=== PATIENT | female | born 1990 | race Caucasian/White ===

== ENCOUNTER 2017-10-08 04:46 | Emergency (ER) | payer OTHER ==
[2017-10-08 05:04] LABS: URINE PH (Dip) POC 7.5 (5.0-8.5)
[2017-10-08 05:04] LABS: URINE BLOOD (Dip) POC 2+ (NEGATIVE); URINE GLUCOSE (Dip) POC Negative (NEGATIVE); URINE KETONES (Dip) POC Negative (NEGATIVE); URINE LEUKOCYTE EST (Dip) POC Negative (NEGATIVE); URINE NITRITE (Dip) POC Negative (NEGATIVE); URINE TOTAL PROTEIN POC Negative (NEGATIVE)
[2017-10-08] MEDS: SOD CHLORIDE 0.9% 500 ML IV (05:12)
[2017-10-08] MEDS: HYDROmorphONE 2 MG/ML SYG IV (05:13)
[2017-10-08] MEDS: ONDANSETRON 4 MG INJ IV ×2 (05:13→05:54)
[2017-10-08 05:43] LABS: ADD MAN DIFF? NO
[2017-10-08 05:52] LABS: BASOPHILS % 0.5 % (0.0-2.0); EOSINOPHILS # 0.4 10^3/ul (0.0-0.5); EOSINOPHILS % 4.3 % (0.0-7.0); HEMATOCRIT 36.5 % (37.0-47.0); HEMOGLOBIN 12.1 g/dl (12.0-16.0); LYMPHOCYTES # 2.9 10^3/ul (0.8-2.9); LYMPHOCYTES % 33.7 % (15.0-51.0); MEAN CORPUSCULAR HEMOGLOBIN 30.5 pg (29.0-33.0); MEAN CORPUSCULAR HGB CONC 33.2 g/dl (32.0-37.0); MEAN CORPUSCULAR VOLUME 91.9 fl (82.0-101.0); MEAN PLATELET VOLUME 11.1 fl (7.4-10.4); MONOCYTE # 0.9 10^3/ul (0.3-0.9); MONOCYTES % 9.8 % (0.0-11.0); NEUTROPHIL # 4.5 10^3/ul (1.6-7.5); NEUTROPHILS % 51.5 % (39.0-77.0); PLATELET COUNT 270 10^3/UL (140-415); RED BLOOD COUNT 3.97 10^6/ul (4.20-5.40)
[2017-10-08 05:52] LABS: WHITE BLOOD COUNT 8.7 10^3/ul (4.8-10.8)
[2017-10-08 05:59] LABS: ADD UMIC YES; UR ASCORBIC ACID NEGATIVE (NEGATIVE); UR BILIRUBIN (Dip) NEGATIVE (NEGATIVE); UR BLOOD (Dip) 2+ mg/dL (NEGATIVE); UR CLARITY CLEAR (CLEAR); UR COLOR YELLOW (YELLOW); UR GLUCOSE (Dip) NEGATIVE (NEGATIVE); UR KETONES (Dip) NEGATIVE (NEGATIVE); UR LEUKOCYTE ESTERASE (Dip) NEGATIVE Leu/ul (NEGATIVE); UR NITRITE (Dip) NEGATIVE (NEGATIVE); UR RBC 3 /HPF (0-5); UR SPECIFIC GRAVITY (Dip) 1.009 (1.003-1.030); UR TOTAL PROTEIN (Dip) NEGATIVE (NEGATIVE); UR UROBILINOGEN (Dip) NEGATIVE (NEGATIVE); UR WBC 1 /HPF (0-5)
[2017-10-08 06:14] LABS: ALANINE AMINOTRANSFERASE 20 IU/L (13-69); ALBUMIN 4.5 g/dl (3.3-4.9); ALBUMIN/GLOBULIN RATIO 1.36; ALKALINE PHOSPHATASE 57 IU/L (42-121); ANION GAP 14 (8-16); ASPARTATE AMINO TRANSFERASE 19 IU/L (15-46); BLOOD UREA NITROGEN 10 mg/dl (7-20); CALCIUM 8.9 mg/dl (8.4-10.2); CARBON DIOXIDE 27 mmol/L (21-31); CHLORIDE 104 mmol/L (97-110); CREATININE 0.61 mg/dl (0.44-1.00); GLUCOSE 93 mg/dl (70-220); LIPASE 123 U/L (23-300); SODIUM 142 mmol/L (135-144); TOTAL PROTEIN 7.8 g/dl (6.1-8.1)
[2017-10-08] MEDS: HYDROmorphONE 0.5 MG/0.5 ML SYG IV (06:20)
[2017-10-08 06:31] LABS: BILIRUBIN,INDIRECT < -0.3 mg/dl (0-1.1); BILIRUBIN,TOTAL < -0.3 mg/dl (0.2-1.3)
== END 2017-10-08 06:42 | disposition home or self-care (01) ==
LOC: E/R 04:46
DX: R10.32 Left lower quadrant pain (principal); R11.0 Nausea
CPT/HCPCS: 36415; 76830; 76856; 80053; 81001; 81003; 81025; 83690; 85025; 96374; 96375; 96376; 99285-25